=== PATIENT | male | born 1935 | race Caucasian/White ===

== ENCOUNTER 2016-07-16 10:46 | Emergency (ER) | payer MEDICARE ==
[2016-07-16 11:21] LABS: BASOPHILS 0.3 % (0.0-2.0); EOSINOPHILS 10.1 % (0-7); HEMATOCRIT 44.9 % (42.0-54.0); HEMOGLOBIN 15.2 g/dL (13.5-17.5); IMMATURE GRANULOCYTES 0.5 % (0-5); LYMPHOCYTES 21.9 % (15-50); MCH 30.3 pg (26.0-34.0); MCHC 33.9 g/dL (31.0-37.0); MCV 89.4 fL (80.0-100.0); MEAN PLATELET VOLUME 10.8 fL (7.4-10.4); MONOCYTES 12.8 % (2-11); NEUTROPHILS 54.4 % (40-80); PLATELET COUNT 197 10x3/uL (130-400); RBC 5.02 10x6/uL (4.20-6.10); RDW 16.4 % (11.5-14.5); WBC 9.6 10x3/uL (4.8-10.8)
[2016-07-16 11:46] LABS: ALKALINE PHOSPHATASE 152 U/L (46-116); ALT (SGPT) 20 U/L (10-68); AMYLASE - SERUM 66 U/L (25-115); CALC OSMOLALITY 274 mosm/kg (275-300); CARBON DIOXIDE 24.5 mmol/L (21.0-32.0); CHLORIDE - SERUM 101 mmol/L (98-107); CREATININE - SERUM 1.3 mg/dL (0.6-1.3); GLUCOSE 181 mg/dL (74-106); LIPASE 91 U/L (73-393); POTASSIUM - SERUM 4.4 mmol/L (3.5-5.1); PRO BNP 900 pg/mL (0-450); PROTEIN - SERUM 7.1 g/dL (6.4-8.2); SODIUM 135 mmol/L (136-145); UREA NITROGEN 13 mg/dL (7-18); eGFR NON AFRICAN AMERICAN 56 mL/min (90-120)
[2016-07-16 11:47] LABS: TROPONIN-I < 0.017 ng/mL (0.000-0.060)
== END 2016-07-16 14:40 | disposition home or self-care (01) ==
LOC: D.ER 10:46
PROVIDERS: Family Medicine
DX: J44.9 Chronic obstructive pulmonary disease, unspecified (principal); I48.2 Chronic atrial fibrillation; I10 Essential (primary) hypertension; I25.10 Atherosclerotic heart disease of native coronary artery without angina pectoris; K21.9 Gastro-esophageal reflux disease without esophagitis